=== PATIENT | female | born 1995 | race Caucasian/White ===

== ENCOUNTER 2018-07-10 19:57 | Emergency (ER) | payer BC, OTHER ==
[2018-07-10 20:07] VITALS: BP 124/72
[2018-07-10] MEDS ORDERED: Al Hydrox/Mg Hydrox/Simet LIQ* 30 ML UDC PO ONE (20:25)
[2018-07-10] MEDS ORDERED: Lidocaine 2% VISCOUS* 15 ML UDC PO ONE (20:26)
--- NOTE | 2018-07-10 20:36 | UC ---
Abdominal Pain Female HPI - HPI Summary HPI Summary: ONSET OF SHARP ABDOMINAL PAIN, NAUSEA AND VOMITING YESTERDAY 3PM. APPETITE IS DOWN. NO FEVER. HAS URINARY FREQUENCY BUT NO DYSURIA. PAIN IS RADIATING INTO HER CHEST AND THROUGH TO HER BACK. WORSE WHEN SHE LAYS DOWN. FEELS A BURNING IN HER THROAT. NO H/O REFLUX. DENIES ANY CHANCE OF . - History of Current Complaint Chief Complaint: UCAbdominalPain Stated Complaint: CHEST & ABD PAIN,VOMITING Time Seen by Provider: 07/10/18 20:19 Hx Obtained From: Patient Hx Last Menstrual Period: 06/25/18 Onset/Duration: Sudden Onset, Lasting Days - 1 DAY, Still Present Timing: Constant Severity Initially: Moderate Severity Currently: Moderate Pain Intensity: 4 Pain Scale Used: 0-10 Numeric Location: Diffuse Radiates: Yes Radiates to: Back Character: Sharp Aggravating Factor(s): Nothing Alleviating Factor(s): Nothing Associated Signs and Symptoms: Positive: Chest Pain, Back Pain, Urinary Symptoms , Decreased Appetite, Nausea, Vomiting. Negative: Diaphoresis, Fever, Cough Allergies/Adverse Reactions: Allergies Allergy/AdvReac Type Severity Reaction Status Date / Time No Known Allergies Allergy Verified 07/10/18 20:07 PMH/Surg Hx/FS Hx/Imm Hx Previously Healthy: Yes - Surgical History Surgical History: None - Family History Known Family History: Negative: Hypertension - Social History Alcohol Use: None Substance Use Type: None Smoking Status (MU): Never Smoked Tobacco Review of Systems Constitutional: Negative Respiratory: Negative Cardiovascular: Chest Pain Gastrointestinal: Abdominal Pain, Vomiting, Nausea All Other Systems Reviewed And Are Negative: Yes Physical Exam Triage Information Reviewed: Yes Appearance: Well-Appearing, No Pain Distress, Well-Nourished Vital Signs: Initial Vital Signs Temp 98.2 F 07/10/18 19:59 Pulse 93 07/10/18 19:59 Resp 16 07/10/18 19:59 BP 124/72 07/10/18 19:59 Pulse Ox 97 07/10/18 19:59 Laboratory Tests 07/10/18 20:59 POC Urine Color Yellow POC Urine Clarity Clear POC Urine pH 6.0 POC Ur Specif [place] >= 1.030 POC Urine Protein 2+ A POC Ur Glucose (UA) Negative POC Urine Ketones 3+ A POC Urine Blood Trace-lysed A POC Urine Nitrite Negative POC Urine Bilirubin 1+ A POC Urine Urobilinogen 0.2 POC U Leukocyte Esteras Negative Vital Signs Reviewed: Yes Eyes: Positive: Conjunctiva Clear ENT: Positive: Hearing grossly normal Neck: Positive: Supple Respiratory Exam: Normal Cardiovascular Exam: Normal Abdomen Description: Positive: Soft, Other: - SUPRAPUBIC TENDERNESS. NO REBOUND OR RIGIDITY. Negative: CVA Tenderness (R), CVA Tenderness (L), Distended, Guarding Bowel Sounds: Positive: Present Musculoskeletal: Positive: No Edema Neurological: Positive: Alert Psychological: Positive: Age Appropriate Behavior Skin: Negative: rashes Diagnostics - EKG Cardiac Rate: NL - 80BPM Cardiac Rhythm: Sinus: Normal Ectopy: None ST Segment: Normal Re-Evaluation - Re-Evaluation First Eval Re-Evaluation Time: 21:05 - BACK PAIN AND CP RESOLVED AFTER GI COCKTAIL BUT LOWER ABD PAIN PERSISTS. Change: Improved Abd Pain Female Course/Dx - Course Course Of Treatment: CHEST PAIN AND BACK PAIN RESOLVED AFTER GI COCKTAIL. PATIENT HAS PERSISTENT LOWER ABDOMINAL PAIN. SUSPECT PATIENT HAS SOME REFLUX AND POSSIBLE GI BUG. DISCUSSED TRANSFER TO ER VERSUS CAREFUL OBSERVATION AT HOME OVER THE NEXT FEW DAYS. PATIENT OPTS FOR CAREFUL OBSERVATION AT HOME WHICH I THINK IS REASONABLE. ADVISED TO STAY WELL-HYDRATED AND FOLLOW EASY DIET. WILL TRY PPI FOR REFLUX. TO THE ER IF SYMPTOMS WORSEN. - Differential Dx/Diagnosis Provider Diagnoses: 1. ABDOMINAL PAIN, NOS. 2. SUSPECTED REFLUX Discharge - Sign-Out/Discharge Documenting (check all that apply): Patient Departure All imaging exams completed and their final reports reviewed: No Studies - Discharge Plan Condition: Stable Disposition: HOME Prescriptions: Omeprazole 40 mg PO DAILY #30 capsule. Patient Education Materials: Gastroesophageal Reflux Disease (ED), Abdominal Pain (ED) Referrals: Gabriela Gonzalez MD [Primary Care Provider] - If Needed Additional Instructions: ABDOMINAL PAIN: There are many causes of abdominal pain. Pain can mean a serious problem requiring surgery (such as appendicitis), or an innocent problem which goes away on its own (such as a viral infection). Often, time must pass to determine the cause of pain. The physician does not feel that hospitalization is necessary, at present. Conditions may change, however, within the next 24 hours. GO TO THE ER WITHOUT FAIL IF ANY OF THE FOLLOWING OCCUR: 1) Pain which becomes more severe, steady, or becomes concentrated in one specific area. Also, pain which is more severe with movement or coughing. 2) Vomiting which persists or becomes more frequent. 3) Blood in the vomitus, urine, or bowel movements. Blood in the stool may have a tarry or black appearance. 4) Shaking chills or fever greater than 100 degrees F. 5) The abdomen becomes more distended or swollen. 6) Bowel movements cease. 7) Failure to improve as expected. TAKE THE REFLUX MEDICINE IN THE MORNING (IDEALLY AT LEAST 30 MINUTES BEFORE YOU EAT). EAT SLOWLY. STAY UPRIGHT AT LEAST 30 MINUTES AFTER EATING. EAT SMALLER, MORE FREQUENT MEALS OPPOSED TO LARGE INFREQUENT MEALS. AVOID POSSIBLE TRIGGER FOODS - GREASY, SPICY, ACIDIC FOODS. CAFFEINE, ALCOHOL. ENSURE ADEQUATE HYDRATION. CLEAR LIQUIDS, BLAND DIET. AVOID CAFFEINE, DAIRY, GREASY, SPICY FOODS. ONCE YOU ARE TOLERATING CLEAR LIQUIDS YOU CAN ADVANCE TO SIMPLE, BLAND FOODS. - Billing Disposition and Condition Condition: STABLE Disposition: Home
== END 2018-07-10 21:18 | disposition home or self-care (01) ==
LOC: UCEAST 19:57
DX: R10.9 Unspecified abdominal pain (principal); R11.2 Nausea with vomiting, unspecified; R35.0 Frequency of micturition; R07.9 Chest pain, unspecified; M54.9 Dorsalgia, unspecified; R09.89 Other specified symptoms and signs involving the circulatory and respiratory systems
CPT/HCPCS: 81003; 93005; 99202; A9270-GY; G0463

== ENCOUNTER 2019-11-06 09:36 | Emergency (ER) | payer OTHER ==
[2019-11-06 09:46] VITALS: BP 107/62
--- NOTE | 2019-11-06 10:13 | UC ---
Throat Pain/Nasal Ki HPI - HPI Summary HPI Summary: 24 yo female presents with sore throat. She tells me that 1 week ago she developed a sore throat that improved in 2-3 days. Since that time her sore throat has returned and last night noticed some swollen lymph nodes to her right neck that concern her. She is eating, drinking, and tolerating po well. Nothing OTC for symptoms. Some sinus congestion. Denies fever, chills, cough, rash, abdominal pain, n/v - History of Current Complaint Chief Complaint: UCGeneralIllness Stated Complaint: SORE THROAT Time Seen by Provider: 11/06/19 10:13 Hx Obtained From: Patient Hx Last Menstrual Period: 10/27/19 Severity: Mild Pain Intensity: 2 Pain Scale Used: 0-10 Numeric - Allergies/Home Medications Allergies/Adverse Reactions: Allergies Allergy/AdvReac Type Severity Reaction Status Date / Time No Known Allergies Allergy Verified 11/06/19 09:46 Home Medications: Home Medications Loratadine 1 tab PO DAILY 11/06/19 [History Confirmed 11/06/19] PMH/Surg Hx/FS Hx/Imm Hx - Additional Past Medical History Additional PMH: Seasonal allergies - Surgical History Surgical History: None - Family History Known Family History: Negative: Hypertension - Social History Lives: With Family Alcohol Use: None Substance Use Type: None Smoking Status (MU): Never Smoked Tobacco Review of Systems All Other Systems Reviewed And Are Negative: No Constitutional: Positive: Negative Skin: Positive: Negative Eyes: Positive: Negative ENT: Positive: Sore Throat, Sinus Congestion Respiratory: Positive: Negative Cardiovascular: Positive: Negative Gastrointestinal: Positive: Negative Neurological: Positive: Negative Psychological: Positive: Negative Physical Exam - Summary Physical Exam Summary: GENERAL: NAD. WDWN. No pain distress. SKIN: No rashes, sores, lesions, or open wounds. HEENT: Head: AT/NC Eyes: Conjunctiva clear without inflammation or discharge. Ears: Hearing grossly normal. TMs intact, no bulging, erythema, or edema. Nose: Nasal mucosa pink and moist. NTTP maxillary and frontal sinus. Throat: Posterior oropharynx mild erythema and 2+ tonsillar enlargement. No exudates. Uvula midline. No hoarse voice or muffled voice. NECK: Supple. Mild right tonsillar LAD mild TTP CHEST: CTAB. No r/r/w. No accessory muscle use. Breathing comfortably and in no distress. CV: RRR.. Pulses intact. Cap refill <2seconds NEURO: Alert. PSYCH: Age appropriate behavior. Triage Information Reviewed: Yes Vital Signs: Initial Vital Signs Temp 98.6 F 11/06/19 09:43 Pulse 81 11/06/19 09:43 Resp 18 11/06/19 09:43 BP 107/62 11/06/19 09:43 Pulse Ox 100 11/06/19 09:43 Vital Signs Reviewed: Yes Throat Pain/Nasal Course/Dx - Course Course Of Treatment: Suspect tonsillitis. Discussed viral vs bacterial causes with the pt and given her progressively worsening symptoms she prefers to be on anbx at this time - Differential Dx/Diagnosis Provider Diagnosis: Tonsillitis Discharge ED - Sign-Out/Discharge Documenting (check all that apply): Patient Departure All imaging exams completed and their final reports reviewed: No Studies - Discharge Plan Condition: Stable Disposition: HOME Prescriptions: Amoxicillin PO (*) [Amoxicillin 875 MG (*)] 875 mg PO BID #14 tab Patient Education Materials: Pharyngitis (ED) Referrals: Gabriela Gonzalez MD [Primary Care Provider] - Additional Instructions: If you develop a fever, shortness of breath, chest pain, new or worsening symptoms - please call your PCP or go to the ED immediately. - Billing Disposition and Condition Condition: STABLE Disposition: Home
== END 2019-11-06 10:24 | disposition home or self-care (01) ==
LOC: UCEAST 09:36
DX: J03.90 Acute tonsillitis, unspecified (principal); R09.81 Nasal congestion; Z91.09 Other allergy status, other than to drugs and biological substances
CPT/HCPCS: 99212; G0463